=== PATIENT | female | born 1995 | race Caucasian/White ===

== ENCOUNTER 2017-01-23 00:01 | Emergency (ER) | payer OTHER ==
[2017-01-23 01:22] VITALS: BP 133/78; PULSE 79; RESP 16; TEMP 98; O2SAT 99
--- NOTE | 2017-01-23 01:29 | ED PDOC ---
HPI: General Adult Time Seen by Provider: 01/23/17 00:33 Chief Complaint (Nursing): ENT Problem History Per: Patient Additional Complaint(s): Pt. states yesterday she felt her L ear "pop" and today she felt the same occur in her R ear. Reports similar symptoms in the past and was dx as having swimmer' s ear and prescribed drops. Denies tinnitus, head injury, headache, fever, recent illness, dizziness. Past Medical History Reviewed: Historical Data, Nursing Documentation, Vital Signs Vital Signs: Last Vital Signs Temp 98.0 F 01/23/17 01:18 Pulse 79 01/23/17 01:18 Resp 16 01/23/17 01:18 BP 133/78 01/23/17 01:18 Pulse Ox 99 01/23/17 01:18 - Medical History Other PMH: adrenal insufficiency - Family History Family History: States: No Known Family Hx - Home Medications Home Medications: Ambulatory Orders Medication Instructions Recorded Ofloxacin Otic 0.3% [Floxin 0.3% 10 drop AU DAILY #1 bottle 01/23/17 Otic Soln] - Allergies Allergies/Adverse Reactions: Allergies Allergy/AdvReac Type Severity Reaction Status Date / Time No Known Allergies Allergy Verified 01/23/17 01:18 Review of Systems ROS Statement: Except As Marked, All Systems Reviewed And Found Negative Physical Exam - Physical Exam Appears: Positive for: Well, Non-toxic, No Acute Distress Head Exam: Positive for: ATRAUMATIC, NORMAL INSPECTION, NORMOCEPHALIC Skin: Positive for: Normal Color, Warm. Negative for: Rash Eye Exam: Positive for: EOMI, Normal appearance, PERRL ENT: Positive for: Hearing Is (grossly intact), Other (b/l ear canals with with mild edema and exudate with cerumen noted; unable to visualize both TM's due to cerumen; no mastoid tenderness b/l). Negative for: Pharyngeal Erythema, Tonsillar Exudate, Tonsillar Swelling - ECG O2 Sat by Pulse Oximetry: 99 Disposition - Clinical Impression Clinical Impression: Otitis externa - Patient ED Disposition Is Patient to be Admitted: No - Disposition Referrals: Malik Michelle MD [Staff Provider] - [facility] [Outside] Disposition: Routine/Home Disposition Time: 01:32 Condition: STABLE Prescriptions: Ofloxacin Otic 0.3% [Floxin 0.3% Otic Soln] 10 drop AU DAILY #1 bottle Instructions: Otitis Externa (ED)
== END 2017-01-23 01:46 | disposition home or self-care (01) ==
LOC: H.ER 00:01
DX: H60.92 Unspecified otitis externa, left ear (principal)